=== PATIENT | male | born 1965 ===

== ENCOUNTER 2021-10-28 15:20 | Inpatient (IN) ==
[2021-10-28] MEDS ORDERED: Lactated Ringers 1000 ml BAG 1,000 ML IV ONE ×3 (15:43→19:21)
[2021-10-28] MEDS ORDERED: Ondansetron 4 mg VIAL 2 MG/ML 2 ml VIAL IV ONE (15:44)
[2021-10-28 16:08] LABS: ABS Lymphocytes 0.5 10^3/ul (1.0-4.8); ABS Monocytes 0.9 10^3/ul (0-0.8); ABS Neutrophils 8.5 10^3/ul (1.5-7.7); Eosinophil % 0.2 %; Hematocrit 29 % (42-52); Hemoglobin 9.2 g/dL (14.0-18.0); Lymphocyte % 5.4 %; Mean Corpuscular HGB Conc 32 g/dL (31-36); Mean Corpuscular Hemoglobin 31 pg (27-31); Mean Corpuscular Volume 95 fL (80-94); Mean Platelet Volume 7.2 fL (7.4-10.4); Platelet Count 223 10^3/uL (150-450); Red Blood Count 3.01 10^6 /uL (4.18-5.48); Red Cell Distribution Width 20 % (10-15)
[2021-10-28 16:16] LABS: Activated Partial Thrombo Time 30.7 seconds (26.0-38.0); INR 1.18 (0.86-1.15)
[2021-10-28 16:19] LABS: Albumin 3.3 g/dL (3.2-5.2); Anion Gap 4 mmol/L (2-11); CO2 Carbon Dioxide 32 mmol/L (22-32); Calcium 8.4 mg/dL (8.6-10.3); Chloride 100 mmol/L (101-111); Magnesium 2.9 mg/dL (1.9-2.7); Potassium 3.7 mmol/L (3.5-5.0); Sodium 136 mmol/L (135-145)
[2021-10-28 16:25] LABS: ALT 11 U/L (7-52); AST 14 U/L (13-39); Albumin/Globulin Ratio 1.1 (1-3); Alkaline Phosphatase 63 U/L (35-149); Blood Urea Nitrogen 26 mg/dL (6-24); C Reactive Protein 41.21 mg/L (<8.01); Creatine Kinase 39 U/L (10-223); Glucose 123 mg/dL (70-100); Total Protein 6.3 g/dL (6.4-8.9); eGFR CKD-EPI 102.1 (>60)
[2021-10-28] MEDS ORDERED: Iohexol 350 (CONTRAST) 500 ML MDV IV ONE (16:39)
[2021-10-28] MEDS ORDERED: Glycerin ADULT 2.4 gm SUPP PR ONE (16:53)
[2021-10-28] MEDS ORDERED: Metoclopramide 5 MG/ML VIAL (10 mg) IV ONE (19:28)
[2021-10-29] MEDS ORDERED: Senna TAB 8.6 mg TAB G TUBE PRN (00:41)
[2021-10-29] MEDS: NS 0.9% 1000 ml BAG 1,000 ML IV SCH ×2 (02:14→12:04)
[2021-10-29 06:05] LABS: ABS Monocytes 1.4 10^3/ul (0-0.8); ABS Neutrophils 6.8 10^3/ul (1.5-7.7); Eosinophil % 0.1 %; Hematocrit 27 % (42-52); Hemoglobin 8.7 g/dL (14.0-18.0); Mean Corpuscular HGB Conc 32 g/dL (31-36); Mean Corpuscular Hemoglobin 31 pg (27-31); Mean Corpuscular Volume 95 fL (80-94); Mean Platelet Volume 7.1 fL (7.4-10.4); Platelet Count 223 10^3/uL (150-450); Red Blood Count 2.86 10^6 /uL (4.18-5.48); Red Cell Distribution Width 19 % (10-15); White Blood Count 9.2 10^3/uL (3.5-10.8)
[2021-10-29] MEDS: HYDROcodone/ACET. 7.5/325 LIQ 15 ML UDC PO PRN ×2 (06:14→14:38)
[2021-10-29 06:28] LABS: Calcium 8.4 mg/dL (8.6-10.3); Potassium 3.6 mmol/L (3.5-5.0); eGFR CKD-EPI 110.9 (>60)
[2021-10-29] MEDS ORDERED: fentaNYL PATCH 50 MCG/HR 1 PATCH TRANSDERM SCH ×2 (10:00→22:00)
[2021-10-29] MEDS: fentaNYL Patch Check Q Shift NOTE FOLLOW UP SCH ×2 (10:03→18:42)
[2021-10-29] MEDS: Docusate LIQ 100 MG/10 ML UDC G TUBE SCH ×2 (10:30→21:05)
[2021-10-29 11:37] LABS: C Reactive Protein 32.84 mg/L (<8.01)
[2021-10-29] MEDS: Saline NASAL SPRAY 0.65% BTL BOTH NARES PRN (18:44)
[2021-10-29] MEDS: Fluticasone NASAL SPRAY 50MCG 16 gm SPRAY BTL INTRANASAL SCH (18:45)
[2021-10-29] MEDS: Enoxaparin 40 MG/0.4 ML SYR SUBCUT SCH (21:05)
[2021-10-29 23:10] LABS: Total Iron Binding Capacity 241 mcg/dL (250-450); Transferrin 172 mg/dL (203-362)
[2021-10-29 23:16] LABS: % Iron Saturation 8 % (15-55); Iron < 20 ug/dL (50-212); Unsaturated Iron Binding 221 ug/dL
[2021-10-29 23:31] LABS: Ferritin 136.1 ng/mL (24-336)
[2021-10-29 23:35] LABS: Folate 13.79 ng/mL (5.90-24.80)
[2021-10-29 23:36] LABS: Vitamin B12 482 pg/mL (180-914)
[2021-10-30] MEDS: NS 0.9% 1000 ml BAG 1,000 ML IV SCH ×3 (00:09→18:36)
[2021-10-30] MEDS: [UNRECOGNIZED DRUG - OTHER] SWISH SPIT SCH ×3 (00:45→21:05)
[2021-10-30] MEDS: PTO: LevoCETirizine 5 mg TAB (NF) PO SCH ×2 (00:48→21:06)
[2021-10-30 06:10] LABS: ABS Monocytes 1.1 10^3/ul (0-0.8); ABS Neutrophils 6.3 10^3/ul (1.5-7.7); Eosinophil % 0.4 %; Hematocrit 29 % (42-52); Hemoglobin 9.4 g/dL (14.0-18.0); Lymphocyte % 11.6 %; Mean Corpuscular HGB Conc 32 g/dL (31-36); Mean Corpuscular Hemoglobin 30 pg (27-31); Mean Corpuscular Volume 94 fL (80-94); Mean Platelet Volume 6.9 fL (7.4-10.4); Platelet Count 259 10^3/uL (150-450); Red Blood Count 3.09 10^6 /uL (4.18-5.48); Red Cell Distribution Width 20 % (10-15); White Blood Count 8.5 10^3/uL (3.5-10.8)
[2021-10-30 06:35] LABS: Calcium 8.6 mg/dL (8.6-10.3); Potassium 3.3 mmol/L (3.5-5.0); eGFR CKD-EPI 118.3 (>60)
[2021-10-30] MEDS: fentaNYL Patch Check Q Shift NOTE FOLLOW UP SCH ×2 (07:20→19:02)
[2021-10-30] MEDS: SODIUM FLUORIDE TOPICAL SCH (09:01)
[2021-10-30] MEDS: Fluticasone NASAL SPRAY 50MCG 16 gm SPRAY BTL INTRANASAL SCH (09:01)
[2021-10-30] MEDS: Docusate LIQ 100 MG/10 ML UDC G TUBE SCH ×2 (09:01→21:05)
[2021-10-30] MEDS: Metoclopramide 5 MG/ML VIAL (10 mg) IV PRN (09:19)
[2021-10-30] MEDS ORDERED: Potassium Chloride LIQUID 20 MEQ/15 ML LIQUID PO ONE (17:40)
[2021-10-30] MEDS: Enoxaparin 40 MG/0.4 ML SYR SUBCUT SCH (21:05)
[2021-10-31] MEDS: NS 0.9% 1000 ml BAG 1,000 ML IV SCH (05:00)
[2021-10-31] MEDS: Saline NASAL SPRAY 0.65% BTL BOTH NARES PRN (05:42)
[2021-10-31 06:04] LABS: ABS Eosinophils 0.1 10^3/ul (0-0.6); ABS Lymphocytes 0.8 10^3/ul (1.0-4.8); ABS Monocytes 1.2 10^3/ul (0-0.8); ABS Neutrophils 5.9 10^3/ul (1.5-7.7); Hematocrit 31 % (42-52); Hemoglobin 9.9 g/dL (14.0-18.0); Lymphocyte % 10.4 %; Mean Corpuscular HGB Conc 33 g/dL (31-36); Mean Corpuscular Hemoglobin 31 pg (27-31); Mean Corpuscular Volume 95 fL (80-94); Mean Platelet Volume 7.2 fL (7.4-10.4); Platelet Count 279 10^3/uL (150-450); Red Blood Count 3.23 10^6 /uL (4.18-5.48); Red Cell Distribution Width 19 % (10-15); White Blood Count 8.1 10^3/uL (3.5-10.8)
[2021-10-31 06:19] LABS: Calcium 8.8 mg/dL (8.6-10.3); Magnesium 1.3 mg/dL (1.9-2.7); Potassium 3.5 mmol/L (3.5-5.0); eGFR CKD-EPI 117.6 (>60)
[2021-10-31] MEDS: fentaNYL Patch Check Q Shift NOTE FOLLOW UP SCH ×2 (06:57→18:49)
[2021-10-31] MEDS ORDERED: Magnesium Sulfate IV 3 GM in NS 0.9% 100 ml BAG 100 ML IVPB ONE (08:58)
[2021-10-31] MEDS ORDERED: Magnesium Sulfate 2 GM IV (Premix) IVPB ONE (09:30)
[2021-10-31] MEDS: HYDROcodone/ACET. 7.5/325 LIQ 15 ML UDC PO PRN (10:14)
[2021-10-31] MEDS: Metoclopramide 5 MG/ML VIAL (10 mg) IV PRN (10:14)
[2021-10-31] MEDS: Docusate LIQ 100 MG/10 ML UDC G TUBE SCH ×2 (10:14→20:13)
[2021-10-31] MEDS: [UNRECOGNIZED DRUG - OTHER] SWISH SPIT SCH ×2 (10:15→20:13)
[2021-10-31] MEDS: Fluticasone NASAL SPRAY 50MCG 16 gm SPRAY BTL INTRANASAL SCH (10:15)
[2021-10-31] MEDS: SODIUM FLUORIDE TOPICAL SCH (10:16)
[2021-10-31] MEDS ORDERED: Magnesium Sulfate 1 GM IV 1 GM/100 ML BAG IV ONE (10:30)
[2021-10-31] MEDS: Enoxaparin 40 MG/0.4 ML SYR SUBCUT SCH (20:12)
[2021-11-01] MEDS: fentaNYL PATCH 50 MCG/HR 1 PATCH TRANSDERM SCH ×2 (01:05→11:16)
[2021-11-01] MEDS: [UNRECOGNIZED DRUG - OTHER] SWISH SPIT SCH ×2 (10:11→20:36)
[2021-11-01] MEDS: SODIUM FLUORIDE TOPICAL SCH (10:11)
[2021-11-01 10:39] LABS: Calcium 8.8 mg/dL (8.6-10.3); Magnesium 1.6 mg/dL (1.9-2.7); Potassium 3.7 mmol/L (3.5-5.0); eGFR CKD-EPI 113.2 (>60)
[2021-11-01] MEDS: fentaNYL Patch Check Q Shift NOTE FOLLOW UP SCH ×2 (11:07→19:20)
[2021-11-01] MEDS: Docusate LIQ 100 MG/10 ML UDC G TUBE SCH ×2 (11:15→20:35)
[2021-11-01] MEDS: Fluticasone NASAL SPRAY 50MCG 16 gm SPRAY BTL INTRANASAL SCH (11:16)
[2021-11-01] MEDS: Sodium Chloride(INHALANT)0.9% 5 ML NEB.SOLN INH SCH ×2 (12:12→19:50)
[2021-11-01] MEDS ORDERED: Magnesium Sulfate 2 gm BAG 2 GM/50 ML BAG IVPB ONE (18:15)
[2021-11-01] MEDS: Enoxaparin 40 MG/0.4 ML SYR SUBCUT SCH (20:37)
[2021-11-01] MEDS: HYDROcodone/ACET. 7.5/325 LIQ 15 ML UDC PO PRN (20:39)
[2021-11-02] MEDS: Sodium Chloride(INHALANT)0.9% 5 ML NEB.SOLN INH SCH ×4 (01:46→19:28)
[2021-11-02] MEDS: HYDROcodone/ACET. 7.5/325 LIQ 15 ML UDC PO PRN ×2 (04:03→18:12)
[2021-11-02 04:22] LABS: ABS Eosinophils 0.2 10^3/ul (0-0.6); ABS Lymphocytes 0.8 10^3/ul (1.0-4.8); ABS Monocytes 1.1 10^3/ul (0-0.8); ABS Neutrophils 4.6 10^3/ul (1.5-7.7); Eosinophil % 3.1 %; Hematocrit 30 % (42-52); Hemoglobin 9.8 g/dL (14.0-18.0); Lymphocyte % 11.4 %; Mean Corpuscular HGB Conc 33 g/dL (31-36); Mean Corpuscular Hemoglobin 31 pg (27-31); Mean Corpuscular Volume 94 fL (80-94); Mean Platelet Volume 6.9 fL (7.4-10.4); Nucleated Red Blood Cells % 0.1; Platelet Count 320 10^3/uL (150-450); Red Blood Count 3.15 10^6 /uL (4.18-5.48); Red Cell Distribution Width 20 % (10-15); White Blood Count 6.6 10^3/uL (3.5-10.8)
[2021-11-02 04:37] LABS: Calcium 8.9 mg/dL (8.6-10.3); Magnesium 1.9 mg/dL (1.9-2.7); Potassium 3.5 mmol/L (3.5-5.0); eGFR CKD-EPI 116.9 (>60)
[2021-11-02] MEDS: fentaNYL Patch Check Q Shift NOTE FOLLOW UP SCH ×2 (07:20→19:22)
[2021-11-02] MEDS: Magnesium Hydroxide LIQ 30 ML UDC G TUBE PRN (09:25)
[2021-11-02] MEDS: [UNRECOGNIZED DRUG - OTHER] SWISH SPIT SCH ×2 (09:26→21:57)
[2021-11-02] MEDS: SODIUM FLUORIDE TOPICAL SCH (09:26)
[2021-11-02] MEDS: Docusate LIQ 100 MG/10 ML UDC G TUBE SCH ×2 (09:27→21:46)
[2021-11-02] MEDS: Fluticasone NASAL SPRAY 50MCG 16 gm SPRAY BTL INTRANASAL SCH (09:27)
[2021-11-02] MEDS: Enoxaparin 40 MG/0.4 ML SYR SUBCUT SCH (21:42)
[2021-11-03] MEDS: Sodium Chloride(INHALANT)0.9% 5 ML NEB.SOLN INH SCH ×3 (01:16→13:14)
[2021-11-03] MEDS: fentaNYL Patch Check Q Shift NOTE FOLLOW UP SCH ×2 (10:00→21:29)
[2021-11-03] MEDS: Metoclopramide 5 MG/ML VIAL (10 mg) IV PRN (10:06)
[2021-11-03] MEDS: Magnesium Hydroxide LIQ 30 ML UDC G TUBE PRN (10:06)
[2021-11-03] MEDS: HYDROcodone/ACET. 7.5/325 LIQ 15 ML UDC PO PRN ×2 (10:07→17:29)
[2021-11-03] MEDS: Docusate LIQ 100 MG/10 ML UDC G TUBE SCH ×2 (10:08→21:28)
[2021-11-03] MEDS: [UNRECOGNIZED DRUG - OTHER] SWISH SPIT SCH ×3 (10:08→21:33)
[2021-11-03] MEDS: fentaNYL PATCH 50 MCG/HR 1 PATCH TRANSDERM SCH (10:08)
[2021-11-03] MEDS: Fluticasone NASAL SPRAY 50MCG 16 gm SPRAY BTL INTRANASAL SCH (10:15)
[2021-11-03] MEDS: SODIUM FLUORIDE TOPICAL SCH (11:52)
[2021-11-03] MEDS ORDERED: Potassium Chlor 10 meq TAB PO ONE (14:20)
[2021-11-03] MEDS ORDERED: Sodium Chloride(INHALANT)0.9% 5 ML NEB.SOLN INH PRN (18:47)
[2021-11-03] MEDS ORDERED: Gadoteridol (CONTRAST) 279.3 MG/ML 10 ML IV ONE (19:48)
[2021-11-03] MEDS: Enoxaparin 40 MG/0.4 ML SYR SUBCUT SCH (21:26)
[2021-11-04 06:24] LABS: ABS Eosinophils 0.3 10^3/ul (0-0.6); ABS Monocytes 1.4 10^3/ul (0-0.8); ABS Neutrophils 4.7 10^3/ul (1.5-7.7); Eosinophil % 3.9 %; Hematocrit 31 % (42-52); Hemoglobin 9.9 g/dL (14.0-18.0); Lymphocyte % 13.2 %; Mean Corpuscular HGB Conc 32 g/dL (31-36); Mean Corpuscular Hemoglobin 30 pg (27-31); Mean Corpuscular Volume 93 fL (80-94); Mean Platelet Volume 6.8 fL (7.4-10.4); Platelet Count 364 10^3/uL (150-450); Red Blood Count 3.32 10^6 /uL (4.18-5.48); Red Cell Distribution Width 19 % (10-15); White Blood Count 7.4 10^3/uL (3.5-10.8)
[2021-11-04 06:39] LABS: Calcium 9.1 mg/dL (8.6-10.3); Magnesium 1.5 mg/dL (1.9-2.7); eGFR CKD-EPI 117.6 (>60)
[2021-11-04] MEDS ORDERED: Magnesium Sulfate IV 3 GM in NS 0.9% 100 ml BAG 100 ML IVPB ONE (08:33)
[2021-11-04] MEDS: Docusate LIQ 100 MG/10 ML UDC G TUBE SCH (08:50)
[2021-11-04] MEDS: Fluticasone NASAL SPRAY 50MCG 16 gm SPRAY BTL INTRANASAL SCH (08:51)
[2021-11-04] MEDS: [UNRECOGNIZED DRUG - OTHER] SWISH SPIT SCH (08:51)
[2021-11-04] MEDS: SODIUM FLUORIDE TOPICAL SCH (08:52)
[2021-11-04] MEDS: fentaNYL Patch Check Q Shift NOTE FOLLOW UP SCH (09:11)
[2021-11-04] MEDS ORDERED: Magnesium Sulfate 2 GM IV (Premix) IVPB ONE (10:00)
[2021-11-04] MEDS ORDERED: Magnesium Sulfate 1 GM IV 1 GM/100 ML BAG IV ONE (11:00)
[2021-11-04 11:44] VITALS: BP 127/89
== END 2021-11-04 15:30 | disposition home health service (06) | DRG 641 ==
LOC: ED 15:20 → EDHOLD 15:20 → SUATTDRO 22:03 → MEDTELE 23:02 → SUATTDRO 10-31 14:00
PROVIDERS: ADMIT Nurse Practitioner; ATTEND Hospitalist

== ENCOUNTER 2021-11-08 19:47 | Inpatient (IN) ==
[2021-11-08 21:07] LABS: Hematocrit 32 % (42-52); Hemoglobin 10.2 g/dL (14.0-18.0); Mean Corpuscular HGB Conc 32 g/dL (31-36); Mean Corpuscular Hemoglobin 30 pg (27-31); Mean Corpuscular Volume 93 fL (80-94); Mean Platelet Volume 6.5 fL (7.4-10.4); Platelet Count 401 10^3/uL (150-450); Red Blood Count 3.42 10^6 /uL (4.18-5.48); Red Cell Distribution Width 20 % (10-15); White Blood Count 15.8 10^3/uL (3.5-10.8)
[2021-11-08] MEDS ORDERED: Lactated Ringers 1000 ml BAG 1,000 ML IV ONE ×2 (21:11→21:35)
[2021-11-08] MEDS ORDERED: fentaNYL 100 mcg/2 ml 50 MCG/ML VIAL IV SLOW PU PRN (21:11)
[2021-11-08] MEDS ORDERED: Ondansetron 4 mg VIAL 2 MG/ML 2 ml VIAL IV ONE (21:16)
[2021-11-08 21:19] LABS: Activated Partial Thrombo Time 31.6 seconds (26.0-38.0); INR 1.23 (0.86-1.15)
[2021-11-08 21:23] LABS: Albumin 3.4 g/dL (3.2-5.2); Albumin/Globulin Ratio 0.9 (1-3); C Reactive Protein 66.93 mg/L (<8.01); Calcium 9.7 mg/dL (8.6-10.3); Globulin 3.6 g/dL (2-4); Potassium 4.1 mmol/L (3.5-5.0); Total Bilirubin 0.3 mg/dL (0.2-1.0); eGFR CKD-EPI 102.8 (>60)
[2021-11-08] MEDS ORDERED: Vancomycin 1,000 MG in NS 0.9% 250 ml 250 ML IVPB ONE (21:34)
[2021-11-08] MEDS ORDERED: Piperacillin/Tazobac ADVAN 3.375 GM in NS 0.9% 100 ml BAG 100 ML IV ONE (21:34)
[2021-11-08 21:40] LABS: ABS Eosinophils 0.1 10^3/ul (0-0.6); ABS Lymphocytes 0.4 10^3/ul (1.0-4.8); ABS Monocytes 0.9 10^3/ul (0-0.8); ABS Neutrophils 14.4 10^3/ul (1.5-7.7); Eosinophil % 0.6 %; Lymphocyte % 2.5 %
[2021-11-08] MEDS ORDERED: Norepinephrine 16MCG/ML BAG NS 4,000 MCG/250 ML BAG IV SCH (22:00)
[2021-11-08] MEDS ORDERED: Iohexol 350 (CONTRAST) 500 ML MDV IV ONE (23:23)
[2021-11-09] MEDS ORDERED: Norepinephrine 16MCG/ML BAG NS 4,000 MCG/250 ML BAG IV ONE (00:21)
[2021-11-09] MEDS: Norepinephrine 16MCG/ML BAG NS 4,000 MCG/250 ML BAG IV SCH ×2 (00:27→13:36)
[2021-11-09 01:32] LABS: Urine Appearance Cloudy; Urine Bilirubin Negative (Negative); Urine Blood Negative (Negative); Urine Color Yellow; Urine Glucose Negative (Negative); Urine Ketones Negative (Negative); Urine Nitrite Negative (Negative); Urine Protein 1+(30 mg/dL) (Negative); Urine Specific Gravity 1.027 (1.002-1.030); Urine Urobilinogen Negative (Negative)
[2021-11-09 01:41] LABS: Urine Bacteria Absent (Absent); Urine Red Blood Cell 1+(3-5/hpf) (Absent); Urine White Blood Cell Trace(0-5/hpf) (Absent)
[2021-11-09] MEDS ORDERED: Lactated Ringers 1000 ml BAG 1,000 ML IV ONE (01:57)
[2021-11-09] MEDS ORDERED: Magnesium Hydroxide LIQ 30 ML UDC PO PRN (03:07)
[2021-11-09] MEDS ORDERED: HYDROcodone/ACET. 7.5/325 LIQ 15 ML UDC PO PRN (03:16)
[2021-11-09] MEDS ORDERED: Senna TAB 8.6 mg TAB PO PRN (03:19)
[2021-11-09] MEDS ORDERED: ZOSYN 3.375 GM Q8H per EXTENDED INFUSION IV ONE (03:30)
[2021-11-09] MEDS ORDERED: Zosyn per Pharmacy NOTE FOLLOW UP SCH (04:00)
[2021-11-09] MEDS: Enoxaparin 40 MG/0.4 ML SYR SUBCUT SCH (04:08)
[2021-11-09] MEDS: Fluticasone NASAL SPRAY 50MCG 16 gm SPRAY BTL INTRANASAL SCH (08:14)
[2021-11-09] MEDS: fentaNYL PATCH 50 MCG/HR 1 PATCH TRANSDERM SCH (08:39)
[2021-11-09] MEDS: ZOSYN 3.375 GM Q8H per EXTENDED INFUSION IV SCH ×2 (11:33→19:35)
[2021-11-09] MEDS: Ondansetron 4 mg VIAL 2 MG/ML 2 ml VIAL IV PRN (15:57)
[2021-11-09] MEDS ORDERED: Norepinephrine 16MCG/ML BAG NS 4,000 MCG/250 ML BAG IV SCH (17:09)
[2021-11-09] MEDS: fentaNYL Patch Check Q Shift NOTE FOLLOW UP SCH (19:09)
[2021-11-09] MEDS: Prochlorperazine 5 mg/ml 2 ml VIAL (10 mg) IV PRN (22:41)
[2021-11-10] MEDS ORDERED: Norepinephrine 16MCG/ML BAG NS 4,000 MCG/250 ML BAG IV SCH (03:56)
[2021-11-10] MEDS: ZOSYN 3.375 GM Q8H per EXTENDED INFUSION IV SCH ×3 (05:11→20:05)
[2021-11-10 05:34] LABS: Hematocrit 28 % (42-52); Mean Corpuscular HGB Conc 32 g/dL (31-36); Mean Corpuscular Hemoglobin 29 pg (27-31); Mean Corpuscular Volume 92 fL (80-94); Mean Platelet Volume 6.3 fL (7.4-10.4); Platelet Count 358 10^3/uL (150-450); Red Blood Count 3.06 10^6 /uL (4.18-5.48); Red Cell Distribution Width 20 % (10-15); White Blood Count 10.8 10^3/uL (3.5-10.8)
[2021-11-10 05:50] LABS: Calcium 8.9 mg/dL (8.6-10.3); Potassium 3.5 mmol/L (3.5-5.0)
[2021-11-10 05:51] LABS: ABS Basophils 0.1 10^3/ul (0-0.2); ABS Eosinophils 0.1 10^3/ul (0-0.6); ABS Lymphocytes 1.2 10^3/ul (1.0-4.8); ABS Monocytes 1.2 10^3/ul (0-0.8); ABS Neutrophils 8.3 10^3/ul (1.5-7.7); Eosinophil % 1.2 %; Lymphocyte % 11.1 %
[2021-11-10] MEDS: Prochlorperazine 5 mg/ml 2 ml VIAL (10 mg) IV PRN ×2 (06:18→13:59)
[2021-11-10] MEDS: Enoxaparin 40 MG/0.4 ML SYR SUBCUT SCH (08:03)
[2021-11-10] MEDS: Fluticasone NASAL SPRAY 50MCG 16 gm SPRAY BTL INTRANASAL SCH (08:15)
[2021-11-10] MEDS: Ondansetron 4 mg VIAL 2 MG/ML 2 ml VIAL IV PRN (08:36)
[2021-11-10 08:38] LABS: Magnesium 1.4 mg/dL (1.9-2.7)
[2021-11-10] MEDS: fentaNYL Patch Check Q Shift NOTE FOLLOW UP SCH ×2 (09:40→18:46)
[2021-11-10] MEDS ORDERED: Magnesium Sulfate IV 3 GM in NS 0.9% 100 ml BAG 100 ML IVPB ONE (11:12)
[2021-11-10] MEDS ORDERED: Magnesium Sulfate 2 GM IV (Premix) IVPB ONE (12:00)
[2021-11-10] MEDS ORDERED: Magnesium Sulfate 1 GM IV 1 GM/100 ML BAG IV ONE (13:00)
[2021-11-10 18:28] LABS: Urine Appearance Clear; Urine Bilirubin Negative (Negative); Urine Blood Negative (Negative); Urine Color Yellow; Urine Glucose Negative (Negative); Urine Ketones Negative (Negative); Urine Nitrite Negative (Negative); Urine Protein Negative (Negative); Urine Specific Gravity 1.017 (1.002-1.030); Urine Urobilinogen Negative (Negative)
[2021-11-11] MEDS: ZOSYN 3.375 GM Q8H per EXTENDED INFUSION IV SCH ×3 (04:57→20:11)
[2021-11-11 07:13] LABS: Hematocrit 28 % (42-52); Hemoglobin 8.8 g/dL (14.0-18.0); Mean Corpuscular HGB Conc 32 g/dL (31-36); Mean Corpuscular Hemoglobin 30 pg (27-31); Mean Corpuscular Volume 92 fL (80-94); Mean Platelet Volume 6.7 fL (7.4-10.4); Platelet Count 311 10^3/uL (150-450); Red Blood Count 2.99 10^6 /uL (4.18-5.48); Red Cell Distribution Width 19 % (10-15); White Blood Count 10.3 10^3/uL (3.5-10.8)
[2021-11-11 07:31] LABS: Calcium 8.8 mg/dL (8.6-10.3); Magnesium 1.6 mg/dL (1.9-2.7); Potassium 3.2 mmol/L (3.5-5.0); eGFR CKD-EPI 113.2 (>60)
[2021-11-11] MEDS ORDERED: KCL 20 MEQ/100 ML IVPREMIX 20 MEQ/100 ML BAG IV ONE (07:52)
[2021-11-11 07:54] LABS: ABS Basophils 0.1 10^3/ul (0-0.2); ABS Eosinophils 0.1 10^3/ul (0-0.6); ABS Lymphocytes 1.1 10^3/ul (1.0-4.8); ABS Monocytes 1.1 10^3/ul (0-0.8); Lymphocyte % 10.3 %
[2021-11-11] MEDS: Potassium Chlor 20 meq TAB.ER PO SCH ×2 (08:23→12:28)
[2021-11-11] MEDS: fentaNYL PATCH 50 MCG/HR 1 PATCH TRANSDERM SCH (08:24)
[2021-11-11] MEDS: fentaNYL Patch Check Q Shift NOTE FOLLOW UP SCH ×2 (08:26→20:10)
[2021-11-11] MEDS: Enoxaparin 40 MG/0.4 ML SYR SUBCUT SCH (08:27)
[2021-11-11] MEDS ORDERED: Magnesium Sulf 4 GM/100 ML IV 4,000 MG/100 ML BAG IVPB ONE (10:00)
[2021-11-11] MEDS: Fluticasone NASAL SPRAY 50MCG 16 gm SPRAY BTL INTRANASAL SCH (10:24)
[2021-11-11] MEDS: Prochlorperazine 5 mg/ml 2 ml VIAL (10 mg) IV PRN ×2 (10:36→18:22)
[2021-11-11] MEDS ORDERED: Saline NASAL SPRAY 0.65% BTL BOTH NARES PRN (11:18)
[2021-11-11] MEDS: Sodium Chloride(INHALANT)0.9% 5 ML NEB.SOLN INH SCH ×2 (11:55→19:48)
[2021-11-11] MEDS ORDERED: NS 0.9% 1000 ml BAG 1,000 ML IV ONE (12:08)
[2021-11-11 19:08] LABS: Calcium 8.4 mg/dL (8.6-10.3); Magnesium 2.1 mg/dL (1.9-2.7); Potassium 3.4 mmol/L (3.5-5.0); eGFR CKD-EPI 115.6 (>60)
[2021-11-11] MEDS ORDERED: Metoclopramide 5 MG/ML VIAL (10 mg) IV SCH (21:00)
[2021-11-11] MEDS ORDERED: Lorazepam PYXIS KEY ONE (22:04)
[2021-11-11] MEDS ORDERED: LORazepam 2 mg VIAL 1 ml ONE (22:04)
[2021-11-11] MEDS ORDERED: EPINEPHrine SYR 0.1MG/ML 10 ml SYRINGE ONE (22:25)
[2021-11-11] MEDS ORDERED: Norepinephrine 16 MCG/ML D5W IVPREMIX (4 MG/250 ML) in D5W IV ONE (22:25)
[2021-11-11] MEDS ORDERED: Atropine 0.1 MG/ML 10 ml SYR (1 mg) ONE (22:25)
[2021-11-12] MEDS: Sodium Chloride(INHALANT)0.9% 5 ML NEB.SOLN INH SCH (00:06)
[2021-11-12 00:25] VITALS: BP 45/33
== END 2021-11-11 22:27 | disposition expired | DRG 871 ==
LOC: ED 19:47 → SUATTDRO 11-09 03:07 → EDHOLD 11-09 03:07 → ICU 11-09 14:18
PROVIDERS: ADMIT Internal Medicine; ATTEND Internal Medicine Hematology & Oncology